=== PATIENT | male | born 1940 ===

== ENCOUNTER → 2024-03-19 11:11 | Outpatient (REF) | payer MEDICARE, SELFPAY ==
--- OUTSIDE RECORDS SUMMARY | 2024-03-19 11:36 | XMS_ITS | Referral Summary ---
Author Organization [facility] [address] Address [address] [place] [address] Care Team Providers Care Apartment Maintenance Worker Name Role Phone Sandra Serrato MD Unavailable Lexi Hope MD Unavailable [phone] Adolfo Toussaint MD Primary Care Provider Encounters Date Type Department Care Team Description 01/22/2024 Plan of Care Documentation [facility] [place] [address] 01/22/2024 9:30 AM ELECTRODE TURNER AND FINISHER Therapy [facility] [place] [address] Rudolph Flores, DANY Primary osteoarthritis of right knee 01/16/2024 11:45 AM ELECTRODE TURNER AND FINISHER Procedure visit [facility] at [address] [address] Adolfo Toussaint MD Chronic pain of right knee (Primary Dx) 01/06/2024 Orders Only [facility] at [address] [address] Adolfo Toussaint MD Dermoid cyst of skin of back (Primary Dx) 01/02/2024 Telephone [facility] at [address] [address] Adolfo Toussaint MD Test Results (X-ray) 12/19/2023 Telephone [facility] Primary [facility] at [address] [address] Adolfo Toussaint MD from Last 3 Months Allergies No known active allergies Medications cholecalciferol (VITAMIN D-3) 2000 unit capsuleIndications:Osteo porosis Take 1 capsule (2,000 Units total) by mouth daily Active vitamin E (AQUASOL E) 100 unit capsule Take 1 capsule (100 Units total) by mouth daily Active ascorbic acid (VITAMIN C) 500 mg tablet,chewableIndicatio ns:Vitamin C Deficiency Take 1 tablet/chew tab (500 mg total) by mouth daily Active multivitamin tabletIndications:Vitami n Deficiency Prevention Take 1 tablet by mouth daily Active glucosamine-chondroitin 500-400 mg capsule Take 1 capsule by mouth daily Active testosterone (TESTOPEL) 75 mg pellet Inject under the skin once Active ibuprofen (ADVIL,MOTRIN) 200 mg tab/capIndications:Anti- inflammatory,Pain Take 3 tablet/caps ule (600 mg total) by mouth 2 (two) times a day as needed for pain Active ezetimibe (ZETIA) 10 mg tabletIndications:Pure hypercholesterolemia Take 1 tablet (10 mg total) by mouth daily 90 tablet 3 06/01/19 23 Active pravastatin (PRAVACHOL) 80 mg tabletIndications:Pure hypercholesterolemia Take 1 tablet (80 mg total) by mouth nightly 90 tablet 3 06/01/19 23 Active aspirin 81 mg enteric coated tabletIndications:Primar y hypertension,Pure hypercholesterolemia Take 1 tablet (81 mg total) by mouth daily 90 tablet 3 10/10/19 23 Active lisinopriL (PRINIVIL,ZESTRIL) 2.5 mg tabletIndications:Primar y hypertension Take 1 tablet (2.5 mg total) by mouth daily 90 tablet 3 10/02/19 24 025 Active cyanocobalamin, vitamin B-12, (VITAMIN B-12 SL) Place under the tongue Active Active Problems Problem Noted Date Diagnosed Date Chronic pain of right knee 01/16/2024 Encounter for Medicare annual wellness exam 05/2023 Assessment & Plan (12/16/2023 8:55 AM ELECTRODE TURNER AND FINISHER): A(n) yearly Medicare Annual Wellness Visit has been performed today. Bree Juan is not up to date on screening tests. He is in need of Hepatitis B screening. He is not up to date on needed preventative vaccinations; He is in need of Influenza. We discussed healthy lifestyle habits, educational material has been given. Medications reviewed, changes documented as per the medical record and discussed with patient along with risks vs benefits. Specific topics reviewed: drugs, ETOH, and tobacco, importance of regular dental care, importance of regular exercise, importance of varied diet, limit TV, media violence, minimize junk food, and seat belts. 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 Hope Establishing care with new doctor, encounter for 05/14/2023 Assessment & Plan (05/14/2023 3:23 PM CDT): A(n) initial visit to establish care has been performed today. Bree Juan is up to date on screening tests. He is in need of Cholesterol screening. He is not up to date on needed preventative vaccinations; He is in need of Covid-19 (booster). We discussed healthy lifestyle habits, educational material has been given. Medications reviewed, changes documented as per the medical record and discussed with patient along with risks vs benefits. Return in 6 months Paresthesia of finger 12/04/2022 Assessment & Plan (12/04/2022 8:45 AM CDT): Declined nerve conduction study at this time. Pure hypercholesterolemia 05/30/2021 Assessment & Plan (12/04/2022 2:55 PM CDT): LDL at goal of less than 100, continue current prescription medications, pravastatin. Assessment & Plan (05/31/2022 10:31 AM CDT): LDL at goal of less than 100, continue current prescription medications, pravastatin, ezetimibe. Assessment & Plan (11/29/2021 5:25 PM CDT): LDL at goal of less than 100, continue current prescription medications. Assessment & Plan (05/30/2021 9:49 AM CDT): LDL at goal of less than 100. Continue current prescription medications. Chronic pain of both shoulders 03/20/2021 Assessment & Plan (03/20/2021 8:24 PM ELECTRODE TURNER AND FINISHER): Offered referral to Ortho, patient would like to hold off for now. Encouraged pt to take Extra Strength acetaminophen as needed for pain, use as directed. 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 We have gone over signs and symptoms of incarceration and strangulation for which she knows that this would have to be fix an on an emergent basis. If he feels as if things are growing or he has a little in his job he can call us back and we can fix this. He will call sooner if any issues arise. In the meantime he can continue to wear a support belt offload the pain and have a good bowel regimen to avoid straining. Assessment & Plan (03/20/2021 8:23 PM ELECTRODE TURNER AND FINISHER): Reducible. Referred to Gen. Surgeon for further eval/mgmt. History of 2019 novel coronavirus disease (COVID -19) 01/16/2021 Body mass index (BMI) of 24.0 to 24.9 in adult 0 03/04/2019 Ectopic cardiac beats 03/01/2019 Assessment & Plan (03/04/2019 3:35 PM ELECTRODE TURNER AND FINISHER): Noted in overnight stay at the hospital frequently. Patient is Asx. Referred to cardiology. Assessment & Plan (03/01/2019 10:05 AM ELECTRODE TURNER AND FINISHER): Not new. Patient was on metoprolol. Frequent PACs and occasional PVCs. No chest pain or shortness of breath. Patient was on metoprolol but ran out of his medication 4-5 days ago. Patient was restarted on his medications. Currently PACs have resolved on tele. Patient does have an occasional PVC on tele. Continue metoprolol. Primary hypertension 03/10/2018 Assessment & Plan (12/04/2022 8:46 AM CDT): Blood pressure at goal less than 140/90, continue current prescription medications, lisinopril, metoprolol xl. Assessment & Plan (05/31/2022 10:32 AM CDT): Blood pressure at goal less than 140/90, continue current prescription medications, lisinopril, metoprolol xl. Assessment & Plan (11/29/2021 5:35 PM CDT): BP slightly above goal, low sodium diet recommended. Cont current Rx meds. Assessment & Plan (05/30/2021 9:49 AM CDT): Blood pressure at goal of less than 140/90. Continue current prescription medications. Assessment & Plan (11/30/2020 8:15 AM CDT): Elevated in office however home blood pressure measurements are within normal limits. Patient reports most recent blood pressure measured at home was 117/77. Assessment & Plan (05/29/2020 9:26 AM CDT): Stable. Cont. Current meds. Assessment & Plan (03/04/2019 3:34 PM ELECTRODE TURNER AND FINISHER): Clinically improved, continue current meds. Assessment & Plan (03/01/2019 9:56 AM ELECTRODE TURNER AND FINISHER): Currently controlled. Metoprolol has been resumed. Lisinopril has also been resumed with hold parameters. Patient's renal function is at baseline. Will check orthostatics. Assessment & Plan (03/10/2018 8:41 AM ELECTRODE TURNER AND FINISHER): Hypertension is worsening. Dietary sodium restriction. Regular aerobic exercise. Stop smoking. Medication changes per orders. Ambulatory blood pressure monitoring. Blood pressure will be reassessed at the next regular appointment. Added Lisinopril 2.5 mg qd Goal < 150/90. 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 Assessment & Plan (11/29/2021 5:24 PM CDT): Advised patient to quit smoking. Assessment & Plan (05/30/2021 9:49 AM CDT): Advised patient to quit smoking. Assessment & Plan (03/20/2021 8:24 PM ELECTRODE TURNER AND FINISHER): Advised patient to quit smoking. Assessment & Plan (11/30/2020 8:14 AM CDT): Advised patient to quit smoking. Assessment & Plan (05/29/2020 9:26 AM CDT): Advised patient to quit smoking. Assessment & Plan (03/04/2019 3:36 PM ELECTRODE TURNER AND FINISHER): Advised patient to quit smoking. Patient says, No. Assessment & Plan (03/01/2019 9:56 AM ELECTRODE TURNER AND FINISHER): Patient smokes half a pack per day and has done so for about 6 years. He is not interested in a nicotine patch at this time. Assessment & Plan (05/02/2017 9:05 AM CDT): Tobacco use is unchanged. Smoking cessation counseling was provided. Tobacco use will be reassessed at the next regular appointment. Essential tremor 08/27/2016 Assessment & Plan (05/29/2020 9:26 AM CDT): Stable, cont current mgmt. Assessment & Plan (03/04/2019 3:34 PM ELECTRODE TURNER AND FINISHER): Clinically improved, continue current meds. Assessment & Plan (03/01/2019 9:55 AM ELECTRODE TURNER AND FINISHER): Continue beta-jolynn. Patient also drinks 2 rum and Cokes in the evenings to help with his tremors. Assessment & Plan (03/10/2018 8:38 AM ELECTRODE TURNER AND FINISHER): Stable, continue metoprolol xl 100mg qd. Assessment & Plan (11/08/2017 1:40 PM CDT): Worsening of tremors as reported by patient. Increased metoprolol xl 100mg qd to 100mg qam and 50mg qpm. Will follow. Advised patient to purchase home bp monitor to monitor for hypotension. Assessment & Plan (05/02/2017 9:05 AM CDT): Offered referral to neurologist, patient declines at this time. Resolved Problems Problem Noted Date Diagnosed Date Resolved Date Abdominal discomfort 03/20/2021 022 Lightheadedness 03/01/2019 03/04/2019 Assessment & Plan (03/01/2019 10:05 AM ELECTRODE TURNER AND FINISHER): Suspect this is due to symptomatic ectopy. Patient ran out of his beta-jolynn for the last 4-5 days. Denies any falls or syncope. No need for neurology consult, will DC at this time. Patient feeling better but did have 1 episode of lightheadedness when he stood up quickly about an hour ago. Will check orthostatic vital signs. Will also check Mag and TSH. Will continue to monitor today and if patient continues to be asymptomatic this afternoon, will DC then. Chronic left shoulder pain 03/10/2018 1 Assessment & Plan (03/10/2018 8:40 AM ELECTRODE TURNER AND FINISHER): Recommended consult with Ortho, he declined, offered referral to PT, he declined. ROM exercises recommended. Cyst of tendon sheath 11/08/20172020 Overview (11/08/2017): 4th finger left hand Assessment & Plan (03/06/2018 11:18 AM ELECTRODE TURNER AND FINISHER): Left ring finger Healing well, no complications or signs of infection reported or noted on exam Pathology discussed no need for further treatment Sutures removed without difficulty Follow up in 4 weeks at 6 week postoperative stephanie for final evaluation Assessment & Plan (11/08/2017 1:42 PM CDT): Referred to plastic surgeon for further eval/tx. Vertigo 05/02/2017 11/28/2020 Assessment & Plan (03/04/2019 3:33 PM ELECTRODE TURNER AND FINISHER): Resolved. Hyperlipidemia LDL goal <70 08/27/2016 05/30/2021 Assessment & Plan (11/30/2020 8:14 AM CDT): LDL near goal of less than 70. Low-cholesterol diet recommended. Continue prescription medications. Assessment & Plan (05/29/2020 9:26 AM CDT): Clinically improved, continue current meds. Assessment & Plan (03/04/2019 3:34 PM ELECTRODE TURNER AND FINISHER): Clinically improved, continue current meds. Assessment & Plan (03/01/2019 9:55 AM ELECTRODE TURNER AND FINISHER): Patient is on Zetia on Pravachol Assessment & Plan (03/10/2018 8:39 AM ELECTRODE TURNER AND FINISHER): Lipid abnormalities are improving with treatment. Nutritional counseling was provided. and Pharmacotherapy as ordered. Lipids will be reassessed 4 months. Assessment & Plan (11/08/2017 1:38 PM CDT): Lipid abnormalities are improving with treatment. Nutritional counseling was provided. and Pharmacotherapy as ordered. pravastatin 80mg qd Lipids will be reassessed in 6 months. Assessment & Plan (05/02/2017 9:04 AM CDT): Lipid abnormalities are unchanged. Nutritional counseling was provided. and Pharmacotherapy as ordered. Lipids will be reassessed in 6 months. Immunizations Name Administration Dates Next Due Influenza, Quad, Adjuvantate d, Intramuscular 01/16/2022 Influenza, Quadrivalent, Hig h Dose, Preservative Free, Intrr 12/04/2022,11/21/2020 Influenza, Trivalent, Adjuva nted, Intramuscular 12/11/2018 Influenza, Trivalent, High D ose, Split, Preservative Free, Intramuscular 12/16/2023 Influenza, Trivalent, IM (MDV) 02/19/2012 Influenza, Unspecified 12/04/2022(Deferr ed: Patient Refused),11/12/2019(Deferred: Patient Refused),12/20/2018,11/15/2017 Pneumococcal, Unspecified 12/04/2022(Deferred: P atient Refused) TD Preservative Free 12/30/2014 Tdap 06/11/2006 Social History Tobacco Use Types Packs/Day Years Used Date Smoking Tobacco: Every Day Cigarettes 0.5 66.1 Started: 1960 Passive Smoke Exposure: Current Smokeless Tobacco: Never Tobacco Cessation:Ready to Q uit: No; Counseling Given: Yes Comments:patient states he will try on his own Alcohol Use Standard Drinks/Week Comments Yes 0 (1 standard drink = 0.6 oz pur e alcohol) 7/week AUDIT-C Answer Date Recorded Q1: How often do you have a drink containing alcohol? 4 or more times a week 05/14/2023 Q2: How many drinks containi ng alcohol do you have on a typical day when you are drinking? 1 or 2 Q3: How often do you have si x or more drinks on one occasion? Never 05/14/2023 PHQ-2 Answer Date Recorded PHQ-2 Total Score (If total score is 3 or more points, staff should administer the PHQ-9) 0 12/16/2023 Sex and Gender Information Value Date Recorded Sex Assigned at Not on file Legal Sex Male 3:33 PM ELECTRODE [employer]NER AND FINISHER Gender Identity Not on file Sexual Orientation Not on file Last Filed Vital Signs Vital Sign Reading Time Taken Comments Blood Pressure 130/84 01/16/2024 11:39 AM ELECTRODE T[employer]NER AND FINISHER Pulse 78 01/16/2024 11:39 AM ELECTRODE T[employer]NER AND FINISHER Temperature 36 C (96.8 F) 01/16/2024 11:39 AM ELECTRODE T[employer]NER AND FINISHER Respiratory Rate 18 01/16/2024 11:39 AM ELECTRODE T[employer]NER AND FINISHER Oxygen Saturation 97% 01/16/2024 11:39 AM ELECTRODE T[employer]NER AND FINISHER Inhaled Oxygen Concentration - - Weight 68.5 kg (151 lb) 01/16/2024 11:39 AM ELECTRODE TURNER AND FINISHER Height 167.6 cm (5' 6 ) 01/16/2024 11:39 AM ELECTRODE T[employer]NER AND FINISHER Body Mass Index 24.37 01/16/2024 11:39 AM ELECTRODE T[employer]NER AND FINISHER Plan of Treatment Not on file Procedures Procedure Name Priority Date/Time Associated Diagnosis Comments VT ARTHROCENTESIS ASPIR&/INJ MAJOR JT/BURSA W/O US Routine 01/16/2024 11:45 AM ELECTRODE T[employer]NER AND FINISHER Chronic pain of right knee from Last 3 Months Results * VT ARTHROCENTESIS ASPIR&/INJ MAJOR JT/BURSA W/O US (01/16/2024 11:45 AM ELECTRODE TURNER AND FINISHER) Narrative Adolfo Toussaint MD - 01/16/2024 11:45 AM ELECTRODE TURNER AND FINISHER Adolfo Toussaint MD 01/19/2024 1:37 PM Large Joint Injection and/or Arthrocentesis: R knee Performed by: Adolfo Toussaint MD Authorized by: Adolfo Toussaint MD Large Joint Injection/Aspiration: Consent Given by: Patient Site marked: the procedure site was marked Timeout: prior to procedure the correct patient, procedure, and site was verified Written consent obtained: Yes Procedure Details: Location: Knee Site: R knee Prep: patient was prepped and draped in usual sterile fashion Prep: patient was prepped using a clean technique Needle Size: 25 G Approach: Anteromedial (attempted anterolateral first, not ideal, switched to anteromedial) Ultrasound guided: No Fluroscopic guidance: No us Adolfo Toussaint MD IN CLINIC/BEDSIDE ORDERABLE S Final Result from Last 3 Months Insurance MEDICARE SOLUTIONS MEDICARE SOLUTIONS [employer] MEDICARE AETNA MEDICARE Advance Directives For more information, please contact: [phone] * Full Code (Latest Code Status on File) Date Activated Date Inactivated Comments 02/28/2019 4:33 PM 03/01/2019 7:16 PM Healthcare Agents on File Name Relationship Healthcare Agent Relationshi p Communication Ada Loveless Spouse First Alternate Health Care Agent Care Teams Apartment Maintenance Worker Relationship Specialty Start Date End Date Adolfo Toussaint MD [address] [facility] [address] [place] [address] PCP - General Family Medicine 10/02/23 [place] [address] [address] [facility] [address] [place] [address] Consulting Physician Plastic Surgery 12/04/22 [place] [id number] [place] [address] Referring Physician Obstetrics and Gynecology 05/14/23
--- OUTSIDE RECORDS SUMMARY | 2024-03-19 11:36 | XMS_ITS | Clinical Summary ---
Author Organization [facility] Medical Office Building [address] Address [address] [place] [address] Care Team Providers Care Video And Sound Recorder Name Role Phone Sandra Serrato MD Unavailable [phone] Lexi Hope MD Unavailable [phone] Adolfo Toussaint MD Primary Care Provider Allergies No known active allergies Medications cholecalciferol [...] 05/2023 Assessment & Plan (12/16/2023 8:55 AM CHORUS MASTER): A(n) yearly Medicare Annual Wellness Visit has [...] 03/20/2021 Assessment & Plan (03/20/2021 8:24 PM CHORUS MASTER): Offered referral to Ortho, patient would like to hold off for now. Encouraged pt to take Extra Strength acetaminophen as needed for pain, use as directed. Umbilical hernia without obstruction and without gangrene 03/20/2021 Assessment & Plan (04/06/2021 9:18 AM CHORUS MASTER): The patient remains quite active in his [...] straining. Assessment & Plan (03/20/2021 8:23 PM CHORUS MASTER): Reducible. Referred to Gen. Surgeon for further eval/mgmt. History of 2019 novel coronavirus disease (COVID -19) 01/16/2021 Body mass index (BMI) of 24.0 to 24.9 in adult 0 03/04/2019 Ectopic cardiac beats 03/01/2019 Assessment & Plan (03/04/2019 3:35 PM CHORUS MASTER): Noted in overnight stay at the hospital frequently. Patient is Asx. Referred to cardiology. Assessment & Plan (03/01/2019 10:05 AM CHORUS MASTER): Not new. Patient was on metoprolol. Frequent [...] meds. Assessment & Plan (03/04/2019 3:34 PM CHORUS MASTER): Clinically improved, continue current meds. Assessment & Plan (03/01/2019 9:56 AM CHORUS MASTER): Currently controlled. Metoprolol has been resumed. Lisinopril has also been resumed with hold parameters. Patient's renal function is at baseline. Will check orthostatics. Assessment & Plan (03/10/2018 8:41 AM CHORUS MASTER): Hypertension is worsening. Dietary sodium restriction. Regular [...] smoking. Assessment & Plan (03/20/2021 8:24 PM CHORUS MASTER): Advised patient to quit smoking. Assessment & Plan (11/30/2020 8:14 AM CDT): Advised patient to quit smoking. Assessment & Plan (05/29/2020 9:26 AM CDT): Advised patient to quit smoking. Assessment & Plan (03/04/2019 3:36 PM CHORUS MASTER): Advised patient to quit smoking. Patient says, No. Assessment & Plan (03/01/2019 9:56 AM CHORUS MASTER): Patient smokes half a pack per day [...] mgmt. Assessment & Plan (03/04/2019 3:34 PM CHORUS MASTER): Clinically improved, continue current meds. Assessment & Plan (03/01/2019 9:55 AM CHORUS MASTER): Continue beta-jolynn. Patient also drinks 2 rum and Cokes in the evenings to help with his tremors. Assessment & Plan (03/10/2018 8:38 AM CHORUS MASTER): Stable, continue metoprolol xl 100mg qd. Assessment [...] 03/04/2019 Assessment & Plan (03/01/2019 10:05 AM CHORUS MASTER): Suspect this is due to symptomatic ectopy. [...] 1 Assessment & Plan (03/10/2018 8:40 AM CHORUS MASTER): Recommended consult with Ortho, he declined, offered referral to PT, he declined. ROM exercises recommended. Cyst of tendon sheath 11/08/20172020 Overview (11/08/2017): 4th finger left hand Assessment & Plan (03/06/2018 11:18 AM CHORUS MASTER): Left ring finger Healing well, no complications or signs of infection reported or noted on exam Pathology discussed no need for further treatment Sutures removed without difficulty Follow up in 4 weeks at 6 week postoperative stephanie for final evaluation Assessment & Plan (11/08/2017 1:42 PM CDT): Referred to plastic surgeon for further eval/tx. Vertigo 05/02/2017 11/28/2020 Assessment & Plan (03/04/2019 3:33 PM CHORUS MASTER): Resolved. Hyperlipidemia LDL goal <70 08/27/2016 05/30/2021 Assessment & Plan (11/30/2020 8:14 AM CDT): LDL near goal of less than 70. Low-cholesterol diet recommended. Continue prescription medications. Assessment & Plan (05/29/2020 9:26 AM CDT): Clinically improved, continue current meds. Assessment & Plan (03/04/2019 3:34 PM CHORUS MASTER): Clinically improved, continue current meds. Assessment & Plan (03/01/2019 9:55 AM CHORUS MASTER): Patient is on Zetia on Pravachol Assessment & Plan (03/10/2018 8:39 AM CHORUS MASTER): Lipid abnormalities are improving with treatment. Nutritional [...] Lipids will be reassessed in 6 months. Encounters Date Type Department Care Team Description 01/22/2024 9:30 AM CHORUS MASTER Therapy [facility] [place] [address] Rudolph Flores, DANY Primary osteoarthritis of right knee 01/22/2024 Plan of Care Documentation [facility] [place] [address] 01/16/2024 11:45 AM CHORUS MASTER Procedure visit [facility] at [address] [address] Adolfo Toussaint MD Chronic pain of right knee (Primary Dx) 01/06/2024 Orders Only [facility] at [address] [address] Adolfo Toussaint MD Dermoid cyst of skin of back (Primary Dx) 01/02/2024 Telephone [facility] at [address] [address] Adolfo Toussaint MD Test Results (X-ray) 12/19/2023 Telephone [facility] at [address] [address] Adolfo Toussaint MD from Last 3 Months Immunizations Name Administration Dates Next Due Influenza, Quad, Adjuvantate d, Intramuscular 01/16/2022 Influenza, Quadrivalent, Hig h Dose, Preservative Free, Intrr 12/04/2022,11/21/2020 Influenza, Trivalent, Adjuva nted, Intramuscular 12/11/2018 Influenza, Trivalent, High D ose, Split, Preservative Free, Intramuscular 12/16/2023 Influenza, Trivalent, IM (MDV) 02/19/2012 Influenza, Unspecified 12/04/2022(Deferr ed: Patient Refused),11/12/2019(Deferred: Patient Refused),12/20/2018,11/15/2017 Pneumococcal, Unspecified 12/04/2022(Deferred: P atient Refused) TD Preservative Free 12/30/2014 Tdap 06/11/2006 Surgical History Surgery Date Site/Laterality Comments OTHER SURGICAL HISTORY Aquiles. inguinal hernia repair / left IH 2004 CARPAL TUNNEL RELEASE Carpal tunnel release Medical History Medical History Date Comments Hyperlipidemia Hyperlipidemia Essential tremor 08/27/2016 Umbilical hernia without obstruction and without gangrene 03/20/2021 Primary hypertension 03/10/2018 Cigarette nicotine dependence without complicati on 05/02/2017 Family History Medical History Relation Name Comments Cancer Sister Relation Name Status Comments Sister Social History Tobacco Use Types Packs/Day Years [...] on file Legal Sex Male 3:33 PM CHORUS MASTER Gender Identity Not on file Sexual Orientation Not on file Obstetrics History Last Filed Vital Signs Vital Sign Reading Time Taken Comments Blood Pressure 130/84 01/16/2024 11:39 AM CHORUS MASTER Pulse 78 01/16/2024 11:39 AM CHORUS MASTER Temperature 36 C (96.8 F) 01/16/2024 11:39 AM CHORUS MASTER Respiratory Rate 18 01/16/2024 11:39 AM CHORUS MASTER Oxygen Saturation 97% 01/16/2024 11:39 AM CHORUS MASTER Inhaled Oxygen Concentration - - Weight 68.5 kg (151 lb) 01/16/2024 11:39 AM CHORUS MASTER Height 167.6 cm (5' 6 ) 01/16/2024 11:39 AM CHORUS MASTER Body Mass Index 24.37 01/16/2024 11:39 AM CHORUS MASTER Plan of Treatment Health Maintenance Due Date Last Done Comments Hepatitis B Screening 1958 Depression Screening 12/15/2024 12/16/2023, 05/14/2023, 12/04/2022, Additional history exists Fall Risk Assessment 12/15/2024 12/16/2023, 05/14/2023, 12/04/2022, Additional history exists Well Visit 65+ 12/15/2024 12/16/2023, 11/12, 11/29/2021, Additional history exists DTaP/Tdap/Td Vaccine (3 - Td or Tdap) 12/30/2024 12/30/2014, 06/11/2006 Pneumococcal vaccine 65+ (1 of 2 - PCV) 11/30/2049 Postponed from 1944 (Patient declined, but will receive in the future) Covid-19 Vaccine Discontinued 05/03/2020, 04/12/2020 Influenza Vaccine Completed 12/16/2023, , 01/16/2022, Additional history exists Zoster Vaccine Discontinued Procedures Procedure Name Priority Date/Time Associated Diagnosis Comments [place] ARTHROCENTESIS ASPIR&/INJ MAJOR JT/BURSA W/O US Routine 01/16/2024 11:45 AM CHORUS MASTER Chronic pain of right knee from Last 3 Months Results * MN ARTHROCENTESIS ASPIR&/INJ MAJOR JT/BURSA W/O US (01/16/2024 11:45 AM CHORUS MASTER) Narrative Adolfo Toussaint MD - 01/16/2024 11:45 AM CHORUS MASTER Adolfo Toussaint MD 01/19/2024 1:37 PM Large [...] anteromedial) Ultrasound guided: No Fluroscopic guidance: No Adolfo Toussaint MD IN CLINIC/BEDSIDE ORDERABLE S Final Result from Last 3 Months Insurance MEDICARE SOLUTIONS MEDICARE SOLUTIONS [facility] [place] [place], [place] [id number] [place] [address] MEDICARE Advance Directives For more information, please contact: [phone] * Full Code (Latest Code Status on File) Date Activated Date Inactivated Comments 02/28/2019 4:33 PM 03/01/2019 7:16 PM Healthcare Agents on File Name Relationship Healthcare Agent Relationshi p Communication Ada Loveless Spouse First Alternate Health Care Agent Care Teams Video And Sound Recorder Relationship Specialty Start Date End Date Adolfo Toussaint MD [address] [facility] [address] [place] [address] PCP - General Family Medicine 10/02/23 [place] [id number] [facility] [address] [place] [address] Consulting Physician Plastic Surgery 12/04/22 [place] [id number] [place] [address] Referring Physician Obstetrics and Gynecology 05/14/23
--- OUTSIDE RECORDS SUMMARY | 2024-03-19 11:36 | XMS_ITS | Clinical Summary ---
Author Organization [facility] Address [address] [place] [address] Phone Care Team Providers Care Canopy Stringer Name Role Phone Provider, None Primary Care Provider Unavailabl e Allergies No known active allergies Medications Coenzyme Q10 (COQ-10) 200 MG Capsule Take 1 Cap by mouth daily. Active Ascorbic Acid (VITAMIN C) 100 MG Tablet Take 1 Tab by mouth daily. Active vitamin E ([facility] VITAMIN E) 1000 UNIT Capsule Take 1,000 Units by mouth daily. Active Multiple Vitamin (MULTIVITAMINS) Capsule Take 1 Cap by mouth daily. Active pravastatin (PRAVACHOL) 80 MG Tablet TAKE 1 TABLET BY MOUTH DAILY 90 Tab 3 11/05/2016 Active ezetimibe (ZETIA) 10 MG Tablet TAKE 1 TABLET BY MOUTH EVERY DAY 90 Tab 2 02/11/2017 Active metoprolol Succinate (TOPROL-XL) 100 MG TABLET SR 24 HR Take 1 Tab by mouth daily. 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 Benign paroxysmal positional vertigo of left ear Immunizations Immunization Administration Dates Next Due Td Vaccine (preservative free) 12/30/2014 Tetanus Toxoid, Unspecified Formulation 06/12/19 07 Family History Medical History Relation Name Comments Congestive Heart Failure Father Relation Name Status Comments Father Social History Tobacco Use Types Packs/Day Years Used Date Smoking Tobacco: Every Day Cigarettes 0.5 55 Smokeless Tobacco: Never Tobacco Cessation:Ready to Q uit: No; Counseling Given: Yes Alcohol Use Standard Drinks/Week Comments Yes 1 (1 standard drink = 0.6 oz pur e alcohol) rum and coke every night Sex and Gender Information Value Date Recorded Sex Assigned at Not on file Legal Sex Male 10:26 PM CDT Gender Identity Not on file Sexual Orientation Not on file Last Filed Vital Signs Vital Sign Reading Time Taken Comments Blood Pressure 128/68 08/27/2016 7:28 AM CDT Pulse 86 08/27/2016 7:28 AM CDT Temperature 36.3 C (97.4 F) 08/27/2016 7:28 AM CDT Respiratory Rate 18 08/27/2016 7:28 AM CDT Oxygen Saturation 98% 08/27/2016 7:28 AM CDT Inhaled Oxygen Concentration - - Weight 79.2 kg (174 lb 8 oz) 08/27/2016 7:28 AM CDT Height 170.2 cm (5' 7 ) 08/27/2016 7:28 AM CDT Body Mass Index 27.33 08/27/2016 7:28 AM CDT Plan of Treatment Health Maintenance Due Date Last Done Comments Hepatitis C Virus (HCV) Screening 1940 TdaP Immunization 1940 Pneumococcal Immunization (5 0+ years) (1 of 1 - PCV) 1988 Zoster Immunization (1 of 2) 1988 Respiratory Syncytial Virus (RSV) Immunization (Adult) (1 - 1-dose 75+ series) 2013 Influenza Immunization (#1) 2023 SARS-COV-2 Immunization ( - 2023-25 season) 2023 05/03/2020, 04/12/2020 Hepatitis B Immunization Aged Out No longer eligible based on patient's age to complete this topic Meningococcal Immunization (ACWY) Aged Out No longer eligible b ased on patient's age to complete this topic Rotavirus Immunization Aged Out No lo nger eligible based on patient's age to complete this topic Care Teams Canopy Stringer Relationship Specialty Start Date End Date Provider, None [place] PCP - General 07/27/20
== END ==
LOC: ANHLAB 11:11
PROVIDERS: PCP Family Medicine; Visit Provider Plastic Surgery
DX: L72.0 Epidermal cyst (principal)
CPT/HCPCS: 88305